=== PATIENT | female | born 1970 | race Caucasian/White ===

== ENCOUNTER → 2018-10-11 | Outpatient (CLI) | payer OTHER ==
[~2018-10-11] MED LIST: ALBU90OI61 INH; ASPI81CH PO; BACL10 PO; BUDE6HFA INH; DULO60 PO; Enbrel25 MG; FOLI1 PO; FURO20 PO; GABA300 PO; GABA600 PO; HYDSUL200 PO; MELO7.5 PO; METTREX2.5 PO; Mirena1 EACH VG; Mobic15 MG PO; Omeprazole20 M1 PO; POTA10T PO; POTCHL10ER PO; PRED5 PO; PROM25S PR; Percocet 5-3251 EACH PO; SIMV40; SULF500 PO; TORS10; TRAZ50 PO; Zocor20 MG PO; Zofran Odt4 MG SL
[2018-10-13 15:06] LABS: HPV 16 Negative (Negative); HPV 18 Negative (Negative); HPV OTHER HR TYPES Negative (Negative)
== END | disposition home or self-care (01) ==
LOC: LAB SHORT 15:10 → LAB 15:10
PROVIDERS: Nurse Practitioner Obstetrics & Gynecology
DX: Z01.419 Encounter for gynecological examination (general) (routine) without abnormal findings (principal)
CPT/HCPCS: 87624; G0123

== ENCOUNTER 2021-06-28 10:27 | Emergency (ER) | payer OTHER ==
[~2021-06-28] VITALS: Ht 170.2 cm; Wt 149.7 kg
[2021-06-28 11:11] LABS: BASOPHILS ABSOLUTE AUTO 0.02 K/mm3 (0.00-0.23); BASOPHILS PERCENT AUTO 0 % (0-2); EOSINOPHILS ABSOLUTE AUTO 0.19 K/mm3 (0.00-0.68); EOSINOPHILS PERCENT AUTO 2 % (0-6); Hemoglobin 14.8 g/dL (11.5-16.0); IMMATURE GRAN ABSOLUTE AUTO 0.04 K/mm3 (0.00-0.10); IMMATURE GRAN PERCENT AUTO 0 % (0-1); LYMPHOCYTES ABSOLUTE AUTO 0.96 K/mm3 (0.84-5.20); LYMPHOCYTES PERCENT AUTO 10 % (21-46); MONOCYTES ABSOLUTE AUTO 0.42 K/mm3 (0.16-1.47); MONOCYTES PERCENT AUTO 4 % (4-13); Mean Corpuscular HGB 28.6 pg (26.0-34.0); Mean Corpuscular HGB Conc 32.9 g/dL (31.5-36.5); Mean Corpuscular Volume 87 fL (80-100); NEUTROPHILS ABSOLUTE AUTO 7.82 K/mm3 (1.96-9.15); NEUTROPHILS PERCENT AUTO 83 % (41-73); Platelet Count 240 K/mm3 (150-400); RDW Coefficient Variation 13.2 % (11.7-14.2); RDW Standard Deviation 41.8 fL (35.1-46.3); Red Blood Cell Count 5.17 M/mm3 (3.80-5.20); White Blood Cell Count 9.45 K/mm3 (4.00-11.30)
[2021-06-28 11:24] LABS: Source, Urine Clean Catch
[2021-06-28 11:30] LABS: Appearance, Urine Clear (Clear); Blood, Urine Neg (Neg); Color, Urine Yellow (P-Yellow); Glucose Qualitative, Urine Neg (Neg); Ketones, Urine Neg (Neg); Leukocyte Esterase, Urine 2+ (Neg); Nitrite, Urine Neg (Neg); Protein, Urine 1+ (Neg); Specific Gravity, Urine 1.025 (1.003-1.022); Urobilinogen, Urine NORM (Normal)
[2021-06-28 11:38] LABS: Bilirubin, Urine 1+ (Neg)
[2021-06-28 11:41] LABS: Bacteria Few /hpf; Red Blood Cells, Urine 0-2 /hpf (0-2); Squamous Epithelial Cells Few /hpf (Few)
[2021-06-28 11:57] LABS: Alanine Aminotransfer (ALT/SGP 34 U/L (12-78); Albumin, Blood 3.2 g/dL (3.4-5.0); Albumin/Globulin Ratio 0.9 (0.8-1.8); Alk Phos 126 U/L (50-136); Anion Gap 6 mmol/L (6-16); Aspartate Aminotrans (AST/SGOT 23 U/L (12-37); Bilirubin, Total 0.2 mg/dL (0.1-1.0); Blood Urea Nitrogen 15 mg/dL (8-24); Bun/Creatinine Ratio 18.7 (12.0-20.0); CO2, Blood 25 mmol/L (21-32); Calcium, Blood 9.1 mg/dL (8.5-10.1); Chloride, Blood 110 mmol/L (98-108); Globulin, Blood 3.6 g/dL (2.2-4.0); Glomerular Filtration Rate >60 (60-); Glucose, Blood 142 mg/dL (70-99); Potassium, Blood 4.4 mmol/L (3.5-5.5); Sodium, Blood 141 mmol/L (136-145); Total Protein, Blood 6.8 g/dL (6.4-8.2)
[2021-06-28] MEDS ORDERED: LEFLUNOMIDE10 M2 PO (12:04)
== END 2021-06-28 15:05 | disposition home or self-care (01) ==
LOC: ER 10:27
PROVIDERS: Emergency Medicine
DX: K80.20 Calculus of gallbladder without cholecystitis without obstruction (principal); Z79.899 Other long term (current) drug therapy; Z79.82 Long term (current) use of aspirin; J44.9 Chronic obstructive pulmonary disease, unspecified; M06.9 Rheumatoid arthritis, unspecified
CPT/HCPCS: 36415; 74177; 76705; 80053; 81001; 83690; 85025; 87086; 93005; 93010; 99284-25; C9113; J1170; J1200; J1885; J2270; J2405; J2930; Q9967

== ENCOUNTER 2022-06-03 11:00 | Day surgery (SDC) | payer OTHER ==
[~2022-06-03] VITALS: Ht 170.2 cm; Wt 133.5 kg
[~2022-06-03 11:00] MED LIST changes: +LEFLUNOMIDE10 M2 PO
== END 2022-06-03 13:03 | disposition home or self-care (01) ==
LOC: ORSCSDS 11:00
PROVIDERS: Student in an Organized Health Care Education/Training Program
PROC: 0DBL8ZX Excision of Transverse Colon, Via Natural or Artificial Opening Endoscopic, Diagnostic (ICD-10-PCS; principal; 2022-06-03 13:15)
PROC: 0DBP8ZX Excision of Rectum, Via Natural or Artificial Opening Endoscopic, Diagnostic (ICD-10-PCS; principal; 2022-06-03 13:15)
PROC: 0DBM8ZX Excision of Descending Colon, Via Natural or Artificial Opening Endoscopic, Diagnostic (ICD-10-PCS; principal; 2022-06-03 13:15)
PROC: 0DBN8ZX Excision of Sigmoid Colon, Via Natural or Artificial Opening Endoscopic, Diagnostic (ICD-10-PCS; principal; 2022-06-03 13:15)
DX: Z12.11 Encounter for screening for malignant neoplasm of colon (principal); K63.5 Polyp of colon; K62.1 Rectal polyp; K64.4 Residual hemorrhoidal skin tags; M32.9 Systemic lupus erythematosus, unspecified; I10 Essential (primary) hypertension; Z79.899 Other long term (current) drug therapy
CPT/HCPCS: 88305; J2704; J7120

== ENCOUNTER → 2022-08-31 | Outpatient (CLI) | payer OTHER ==
[2022-09-07 13:09] LABS: HPV 16 Negative (Negative); HPV 18 Negative (Negative); HPV OTHER HR TYPES Negative (Negative)
== END | disposition home or self-care (01) ==
LOC: LAB SHORT 14:30 → LAB 14:30
PROVIDERS: Internal Medicine
DX: Z12.4 Encounter for screening for malignant neoplasm of cervix (principal)
CPT/HCPCS: 87624; G0145

== ENCOUNTER 2024-06-01 11:44 | Emergency (ER) | payer OTHER ==
[~2024-06-01] VITALS: Ht 170.2 cm; Wt 128.4 kg
[2024-06-01 12:38] LABS: BASOPHILS ABSOLUTE AUTO 0.02 K/mm3 (0.00-0.23); BASOPHILS PERCENT AUTO 0 % (0-2); EOSINOPHILS ABSOLUTE AUTO 0.26 K/mm3 (0.00-0.68); EOSINOPHILS PERCENT AUTO 4 % (0-6); Hematocrit 41.8 % (33.0-51.0); Hemoglobin 13.8 g/dL (11.5-16.0); IMMATURE GRAN ABSOLUTE AUTO 0.02 K/mm3 (0.00-0.10); IMMATURE GRAN PERCENT AUTO 0 % (0-1); LYMPHOCYTES ABSOLUTE AUTO 1.37 K/mm3 (0.84-5.20); LYMPHOCYTES PERCENT AUTO 22 % (21-46); MONOCYTES ABSOLUTE AUTO 0.36 K/mm3 (0.16-1.47); MONOCYTES PERCENT AUTO 6 % (4-13); Mean Corpuscular HGB 28.9 pg (26.0-34.0); Mean Corpuscular Volume 88 fL (80-100); Mean Platelet Volume 9.3 fL (9.1-12.4); NEUTROPHILS ABSOLUTE AUTO 4.34 K/mm3 (1.96-9.15); NEUTROPHILS PERCENT AUTO 68 % (41-73); Platelet Count 215 K/mm3 (150-400); RDW Coefficient Variation 13.9 % (11.7-14.2); RDW Standard Deviation 44.4 fL (35.1-46.3); Red Blood Cell Count 4.77 M/mm3 (3.80-5.20); White Blood Cell Count 6.37 K/mm3 (4.00-11.30)
[2024-06-01 13:00] LABS: Albumin, Blood 3.4 g/dL (3.4-5.0); Albumin/Globulin Ratio 0.8 (0.8-1.8); Bilirubin, Total 0.2 mg/dL (0.1-1.0); Bun/Creatinine Ratio 14.9 (12.0-20.0); Calcium, Blood 9.2 mg/dL (8.5-10.1); Creatinine, Blood 0.87 mg/dL (0.40-1.00); Potassium, Blood 3.8 mmol/L (3.5-5.5); Total Protein, Blood 7.4 g/dL (6.4-8.2)
[2024-06-01 14:37] VITALS: BP 152/95
== END 2024-06-01 14:58 | disposition home or self-care (01) ==
LOC: ER 11:44
PROVIDERS: Physician Assistant
DX: K80.70 Calculus of gallbladder and bile duct without cholecystitis without obstruction (principal); J44.9 Chronic obstructive pulmonary disease, unspecified; Z79.899 Other long term (current) drug therapy
CPT/HCPCS: 76705; 80053; 83690; 84484; 85025; 93005; 93010; 99284-25

== ENCOUNTER 2025-01-22 14:52 | Emergency (ER) | payer OTHER ==
[~2025-01-22] VITALS: Ht 167.6 cm; Wt 120.2 kg
[2025-01-22 15:37] LABS: BASOPHILS ABSOLUTE AUTO 0.05 K/mm3 (0.00-0.23); BASOPHILS PERCENT AUTO 1 % (0-2); EOSINOPHILS ABSOLUTE AUTO 0.33 K/mm3 (0.00-0.68); EOSINOPHILS PERCENT AUTO 5 % (0-6); Hematocrit 39.7 % (33.0-51.0); Hemoglobin 13.2 g/dL (11.5-16.0); IMMATURE GRAN ABSOLUTE AUTO 0.03 K/mm3 (0.00-0.10); IMMATURE GRAN PERCENT AUTO 0 % (0-1); LYMPHOCYTES ABSOLUTE AUTO 1.62 K/mm3 (0.84-5.20); LYMPHOCYTES PERCENT AUTO 24 % (21-46); MONOCYTES ABSOLUTE AUTO 0.34 K/mm3 (0.16-1.47); MONOCYTES PERCENT AUTO 5 % (4-13); Mean Corpuscular HGB Conc 33.2 g/dL (31.5-36.5); Mean Corpuscular Volume 89 fL (80-100); NEUTROPHILS ABSOLUTE AUTO 4.50 K/mm3 (1.96-9.15); NEUTROPHILS PERCENT AUTO 66 % (41-73); NRBC ABSOLUTE 0.00 K/mm3 (0.00-0.02); NRBC Auto 0.0 /100 WBC (0.0-0.2); Platelet Count 243 K/mm3 (150-400); RDW Coefficient Variation 13.8 % (11.7-14.2); RDW Standard Deviation 44.6 fL (35.1-46.3)
[2025-01-22 16:05] LABS: Alanine Aminotransfer (ALT/SGP 30.0 U/L (12-78); Albumin, Blood 3.3 g/dL (3.4-5.0); Albumin/Globulin Ratio 0.8 (0.8-1.8); Anion Gap 6.0 mmol/L (3-11); Aspartate Aminotrans (AST/SGOT 18.0 U/L (12-37); Bilirubin, Total 0.3 mg/dL (0.1-1.0); Blood Urea Nitrogen 13.0 mg/dL (8-24); CO2, Blood 27.0 mmol/L (21-32); Calcium, Blood 9.0 mg/dL (8.5-10.1); Chloride, Blood 110.0 mmol/L (98-108); Creatinine, Blood 0.83 mg/dL (0.40-1.00); Globulin, Blood 4.1 g/dL (2.2-4.0); Glucose, Blood 120.0 mg/dL (70-99); Potassium, Blood 3.9 mmol/L (3.5-5.5); Sodium, Blood 139.0 mmol/L (136-145); Total Protein, Blood 7.4 g/dL (6.4-8.2)
[2025-01-22] MEDS ORDERED: DiphenhydrAMINE HCl 50 MG/ML 1ML Vial IV ONE (16:15)
[2025-01-22 18:10] VITALS: BP 155/59
== END 2025-01-22 18:11 | disposition home or self-care (01) ==
LOC: ER 14:52
PROVIDERS: Emergency Medicine
DX: J20.9 Acute bronchitis, unspecified (principal); J44.0 Chronic obstructive pulmonary disease with (acute) lower respiratory infection; R06.00 Dyspnea, unspecified; I10 Essential (primary) hypertension; Z91.041 Radiographic dye allergy status; Z79.899 Other long term (current) drug therapy
CPT/HCPCS: 71046; 71260; 80053; 83880; 84484; 85025; 85379; 93005; 93010; 96374-59; 96375-59; 99285-25; J1200; J2919; Q9967

== ENCOUNTER 2025-03-11 06:29 | Day surgery (SDC) | payer OTHER ==
[~2025-03-11] VITALS: Ht 170.2 cm; Wt 147.2 kg
[2025-03-11] VITALS (7 sets, daily range): BP systolic 96–193; BP diastolic 72–100
[~2025-03-11 06:29] MED LIST changes: +BUPR150ER PO; +OMEP20ER PO; +OZEMPIC0.25 MG/02 SQ; +Prinivil10 MG PO
[2025-03-11] MEDS ORDERED: Benzocaine Oral Spray 0.5ML UD ONE (06:45)
[2025-03-11] MEDS ORDERED: Verapamil HCL 2.5 MG/ML 2ML Injection ONE (06:51)
[2025-03-11] MEDS ORDERED: Nitroglycerin 2 MG/20 ML BTL ONE (06:52)
[2025-03-11] MEDS ORDERED: NS 250 ML IV ONE (06:52)
[2025-03-11] MEDS ORDERED: Heparin Sodium 1000 Units/ML 10ML MDV ONE ×2 (06:52→07:47)
[2025-03-11] MEDS ORDERED: NS 1,000 ML IV ONE ×2 (06:52→07:47)
[2025-03-11] MEDS ORDERED: DiphenhydrAMINE HCl 50 MG/ML 1ML Vial ONE (07:47)
[2025-03-11] MEDS ORDERED: FentaNYL Citrate 50 MCG/ML 2 ML Injection ONE (08:16)
[2025-03-11] MEDS ORDERED: Midazolam HCl 1MG / ML 2ML Vial ONE (08:16)
--- NOTE | 2025-03-11 10:10 | NUR ---
PT ARRIVES TO RECOVRY ROOM WITH R RADIAL TR BAND IN PLACE. R AC BANDAID AND R IJ SITE. NO BLEEDING OR HEMATOMA NOTED AT ALL SITES. C/D/I. DR PARDO IN ROOM DISCUSSING PLAN OF CARE.
[2025-03-11] MEDS ORDERED: Furosemide 10 MG / ML 2ML Vial ONE (10:16)
[2025-03-11] MEDS ORDERED: Aspir 8181 MG PO (10:31)
[2025-03-11] MEDS ORDERED: METO25ER PO (10:33)
[2025-03-11] MEDS ORDERED: FARXIGA10 MG PO (10:33)
[2025-03-11] MEDS ORDERED: FURO20 PO (10:34)
[2025-03-11] MEDS ORDERED: LOSA25 PO (10:34)
--- NOTE | 2025-03-11 11:02 | NUR ---
PT AMBULATES TO RESTROOM AND BACK WITHOUT DIFF. VSS. NADN. PT RESTING COMFORTABLY. DENIES NEEDS. CALL LIGHT WITHIN REACH. FAMILY AT BEDSIDE
--- NOTE | 2025-03-11 11:20 | NUR ---
PT AMBULATES TO RESTROOM AND BACK WITHOUT DIFF. PT TR BAND FULLY DEFLATED. NO BLEEDING OR HEMATOMA NOTED. VSS. PT VERBALIZES UNDERSTANDING WRITTEN AND VERBAL INSTRUCTIONS. PT DENIES QUESTIONS OR CONCERNS.
--- NOTE | 2025-03-11 12:10 | NUR ---
PT DRESSES SELF WITHOUT DIFF. PT TR BAND REMOVED, CLOT DOT DRESSING AND SPLINT APPLIED.NO BLEEDING OR HEMATOMA NOTED. VSS. NADN. PT DC TO HOME VIA WC BY ROBBIE MARTINEZ.
== END 2025-03-11 12:10 | disposition home or self-care (01) ==
LOC: MHTC 06:29
DX: I08.0 Rheumatic disorders of both mitral and aortic valves (principal); I27.20 Pulmonary hypertension, unspecified; I10 Essential (primary) hypertension; E78.5 Hyperlipidemia, unspecified; E66.9 Obesity, unspecified
CPT/HCPCS: 76937; 93005; 93010; 93460; 93567; 99152; 99153; A9270; C1769; C1887; C1894; J1200; J1644; J1938; J2250; J3010; J7030; J7050; Q9967

== ENCOUNTER 2025-03-21 08:29 | Day surgery (SDC) | payer OTHER ==
[~2025-03-21] VITALS: Ht 170.2 cm; Wt 129.0 kg
[2025-03-21] VITALS (8 sets, daily range): BP systolic 123–173; BP diastolic 56–106
[~2025-03-21 08:29] MED LIST changes: +Aspir 8181 MG PO; +FARXIGA10 MG PO; +LOSA25 PO; +METO25ER PO; +Propofol 10mg/ml 20 ml Vial (Procedural) IV ONE
[2025-03-21] MEDS ORDERED: Benzocaine Oral Spray 0.5ML UD ONE (08:56)
[2025-03-21] MEDS ORDERED: SPIR25 PO (09:05)
[2025-03-21] MEDS ORDERED: NS 1,000 ML IV ONE (09:11)
[2025-03-21] MEDS ORDERED: Lidocaine HCl 2% 10 ML SDA ONE (10:06)
--- NOTE | 2025-03-21 10:42 | NUR ---
ASSUMED CARE FROM ANESTHESIA, PT AWAKE AND VERBALIZING WELL.
--- NOTE | 2025-03-21 10:53 | NUR ---
PT AND FAMILY VERBALIZED UNDERSTANDING OF WRITTEN AND VERBAL D/C INST. TAKING PO FLUIDS WELL. IV REMOVED. PT WILL BE TAKEN OUT OF THE [facility]ENTER VIA W/C.
== END 2025-03-21 23:00 | disposition home or self-care (01) ==
LOC: MHTC 08:29
DX: I35.1 Nonrheumatic aortic (valve) insufficiency (principal); I10 Essential (primary) hypertension; E78.5 Hyperlipidemia, unspecified; M32.9 Systemic lupus erythematosus, unspecified; M06.9 Rheumatoid arthritis, unspecified; J67.2 Bird fancier's lung; K58.9 Irritable bowel syndrome, unspecified; E66.01 Morbid (severe) obesity due to excess calories; Z68.42 Body mass index [BMI] 45.0-49.9, adult; Z79.899 Other long term (current) drug therapy; Z91.041 Radiographic dye allergy status
CPT/HCPCS: 93312; 93325; A9270; J2003; J2704; J7030

== ENCOUNTER 2025-04-02 07:41 | Observation (INO) | payer OTHER ==
[~2025-04-02] VITALS: Ht 170.2 cm; Wt 121.1 kg
[~2025-04-02 07:41] MED LIST changes: -Propofol 10mg/ml 20 ml Vial (Procedural) IV ONE; +SPIR25 PO
[2025-04-02 08:00] LABS: BASOPHILS ABSOLUTE AUTO 0.06 K/mm3 (0.00-0.23); BASOPHILS PERCENT AUTO 1 % (0-2); EOSINOPHILS ABSOLUTE AUTO 0.32 K/mm3 (0.00-0.68); EOSINOPHILS PERCENT AUTO 5 % (0-6); Hematocrit 39.0 % (33.0-51.0); Hemoglobin 13.2 g/dL (11.5-16.0); IMMATURE GRAN ABSOLUTE AUTO 0.02 K/mm3 (0.00-0.10); IMMATURE GRAN PERCENT AUTO 0 % (0-1); LYMPHOCYTES ABSOLUTE AUTO 1.13 K/mm3 (0.84-5.20); LYMPHOCYTES PERCENT AUTO 17 % (21-46); MONOCYTES ABSOLUTE AUTO 0.25 K/mm3 (0.16-1.47); MONOCYTES PERCENT AUTO 4 % (4-13); Mean Corpuscular HGB Conc 33.8 g/dL (31.5-36.5); Mean Corpuscular Volume 86 fL (80-100); NEUTROPHILS ABSOLUTE AUTO 4.87 K/mm3 (1.96-9.15); NEUTROPHILS PERCENT AUTO 73 % (41-73); NRBC ABSOLUTE 0.00 K/mm3 (0.00-0.02); NRBC Auto 0.0 /100 WBC (0.0-0.2); Platelet Count 211 K/mm3 (150-400); RDW Coefficient Variation 13.6 % (11.7-14.2); RDW Standard Deviation 42.9 fL (35.1-46.3)
[2025-04-02 08:21] LABS: Alanine Aminotransfer (ALT/SGP 17.0 U/L (12-78); Albumin, Blood 3.4 g/dL (3.4-5.0); Albumin/Globulin Ratio 0.9 (0.8-1.8); Anion Gap 6.0 mmol/L (3-11); Aspartate Aminotrans (AST/SGOT 10.0 U/L (12-37); Bilirubin, Total 0.2 mg/dL (0.1-1.0); Blood Urea Nitrogen 16.0 mg/dL (8-24); CO2, Blood 25.0 mmol/L (21-32); Calcium, Blood 8.9 mg/dL (8.5-10.1); Chloride, Blood 111.0 mmol/L (98-108); Creatinine, Blood 0.85 mg/dL (0.40-1.00); Globulin, Blood 3.7 g/dL (2.2-4.0); Glucose, Blood 109.0 mg/dL (70-99); Potassium, Blood 4.1 mmol/L (3.5-5.5); Sodium, Blood 138.0 mmol/L (136-145); Total Protein, Blood 7.1 g/dL (6.4-8.2)
[2025-04-02] MEDS ORDERED: FLU VACC TS2025-26(6MOS UP)/PF 45 MCG/0.5 ML SYRINGE IM SCH (11:05)
[2025-04-02 13:38] VITALS: BP 149/49
[2025-04-02 15:26] VITALS: BP 120/46
[2025-04-02 17:15] VITALS: BP 149/64
--- NOTE | 2025-04-02 17:30 | NUR ---
PATIENT ARRIVED TO PCU AT 1330. STANDING WEIGHT COMPLETED ON ADMIT. ALERT AND ORIENTED X4. UP IND. MOVING ALL EXTREMITIES. DENIES PAINS. ON ROOM AIR SATING ABOVE 95%. LUNG SOUNDS DIMINISHED WITH CRACKLES IN BASES. SOB ON EXCERTION. PATIENT STATES SHE WEARS CPAP AT HOME. TELE SHOWING SR WITH HR 70-90'S. SBP 120-140'S. DENIES CHEST PAIN/PRESSURE/PALPITATIONS. IV SALINE LOCKED. STRICT INTAKE AND OUTPUT. PATIENT EDUCATED ON MEASURING ALL FLUIDS. BOWEL TONES PRESENT. DENIES ABDOMINAL PAIN/NAUSEA. TOLERATING PO DIET. MENU PROVIDED TO PATIENT. TRACE EDEMA NOTED TO BLE. SKIN C/D/I. FAMILY AT BEDSIDE. CALL LIGHT IN REACH. DENIES NEEDS, EATING DINNER AT THIS TIME.
[2025-04-02 19:39] VITALS: BP 145/51
[2025-04-03 00:05] VITALS: BP 134/54
[2025-04-03 03:14] VITALS: BP 129/52
[2025-04-03 05:27] LABS: BASOPHILS ABSOLUTE AUTO 0.04 K/mm3 (0.00-0.23); BASOPHILS PERCENT AUTO 1 % (0-2); EOSINOPHILS ABSOLUTE AUTO 0.31 K/mm3 (0.00-0.68); EOSINOPHILS PERCENT AUTO 6 % (0-6); Hematocrit 37.6 % (33.0-51.0); Hemoglobin 12.4 g/dL (11.5-16.0); IMMATURE GRAN ABSOLUTE AUTO 0.01 K/mm3 (0.00-0.10); IMMATURE GRAN PERCENT AUTO 0 % (0-1); LYMPHOCYTES ABSOLUTE AUTO 1.51 K/mm3 (0.84-5.20); LYMPHOCYTES PERCENT AUTO 27 % (21-46); MONOCYTES ABSOLUTE AUTO 0.38 K/mm3 (0.16-1.47); MONOCYTES PERCENT AUTO 7 % (4-13); Mean Corpuscular HGB Conc 33.0 g/dL (31.5-36.5); Mean Corpuscular Volume 86 fL (80-100); NEUTROPHILS ABSOLUTE AUTO 3.30 K/mm3 (1.96-9.15); NEUTROPHILS PERCENT AUTO 60 % (41-73); NRBC ABSOLUTE 0.00 K/mm3 (0.00-0.02); NRBC Auto 0.0 /100 WBC (0.0-0.2); Platelet Count 207 K/mm3 (150-400); RDW Coefficient Variation 13.8 % (11.7-14.2); RDW Standard Deviation 43.1 fL (35.1-46.3)
[2025-04-03 06:11] LABS: Alanine Aminotransfer (ALT/SGP 17.0 U/L (12-78); Albumin, Blood 3.5 g/dL (3.4-5.0); Albumin/Globulin Ratio 1.0 (0.8-1.8); Anion Gap 8.0 mmol/L (3-11); Aspartate Aminotrans (AST/SGOT 14.0 U/L (12-37); Bilirubin, Total 0.4 mg/dL (0.1-1.0); Blood Urea Nitrogen 16.0 mg/dL (8-24); CO2, Blood 27.0 mmol/L (21-32); Calcium, Blood 9.1 mg/dL (8.5-10.1); Chloride, Blood 105.0 mmol/L (98-108); Creatinine, Blood 0.89 mg/dL (0.40-1.00); Globulin, Blood 3.5 g/dL (2.2-4.0); Glucose, Blood 103.0 mg/dL (70-99); Potassium, Blood 3.6 mmol/L (3.5-5.5); Sodium, Blood 136.0 mmol/L (136-145); Total Protein, Blood 7.0 g/dL (6.4-8.2)
--- NOTE | 2025-04-03 06:33 | NUR ---
SHIFT SUMMARY: PT A&OX4 CALM AND COOPERATIVE. ABLE TO MAKE NEEDS KNOWN AND CALLS APPROPRIATELY. SBP 120S-140S AND HR SR 70S-90S. BECOMES ST 110S-120S AND SOB WITH EXERTION. MAINTAINING >89% ON RA AND TOLERATES CPAP AT NIGHT. IND IN ROOM. POTASSIUM 3.6 AND PROVIDER NOTIFIED. PROVIDER ORDERED 20 MEQ PO K-DUR AB. MEDICATED PER EMAR. RECEIVING IV DIURETICS. STRICT I&OS. STANDING WEIGHT COMPLETED. FAMILY AT BEDSIDE. BED IS LOW AND LOCKED. CALL LIGHT WITHIN REACH. CONTINUE WITH CURRENT PLAN OF CARE.
[2025-04-03 08:24] VITALS: BP 127/52
[2025-04-03] MEDS ORDERED: DULoxetine HCL 60 MG Capsule DR PO SCH (09:00)
[2025-04-03] MEDS ORDERED: Enoxaparin 40 MG/0.4 ML SYR SC SCH (09:00)
[2025-04-03 11:15] VITALS: BP 162/61
--- NOTE | 2025-04-03 14:49 | NUR ---
PT DISCHARGED TO HOME WITH DISCHARGE ORDERS, NO NEW MEDICAITONS AT THIS TIME. VITALS HAS BEEN STABLE. NO NEW SYMPTOMS REPORTED. PT HAS BEEN INDEPENDENT IN THE ROOM. PT TO FOLLOW UP WITH DICE TABLE OPERATOR FOR OUTPT TAVR. PT VERBALIZED UNDERSTANDING, ALL BELONGIGNS SENT WITH THE PT. DAUGHTER AT THE BEDSIDE PROVIDED TRANPORTATION
== END 2025-04-03 14:35 | disposition home or self-care (01) ==
LOC: ER 07:41 → PCU 07:42
PROVIDERS: Student in an Organized Health Care Education/Training Program; ADMIT Hospitalist
DX: I11.0 Hypertensive heart disease with heart failure (principal); I50.20 Unspecified systolic (congestive) heart failure; I21.4 Non-ST elevation (NSTEMI) myocardial infarction; I35.1 Nonrheumatic aortic (valve) insufficiency; J44.9 Chronic obstructive pulmonary disease, unspecified; M32.9 Systemic lupus erythematosus, unspecified; Z91.041 Radiographic dye allergy status; Z79.82 Long term (current) use of aspirin; Z79.899 Other long term (current) drug therapy
CPT/HCPCS: 36415; 71046; 80053; 82947; 83690; 83735; 83880; 84484; 85025; 93005; 93010; 94762; 96372; 96374; 96376; 99285-25; A9270; G0378; J1650; J1938